=== PATIENT | female | born 1995 | race Caucasian/White ===

== ENCOUNTER 2019-06-27 10:54 | Emergency (ER) | payer OTHER ==
[~2019-06-27] VITALS: Ht 165.1 cm; Wt 83.9 kg
[2019-06-27 11:04] VITALS: BP 106/63
--- NOTE | 2019-06-27 11:31 | RAD ---
TOES LEFT History: Pain in the great toe after passing out at work Comparison: None. Findings: 2 views of the left foot with attention to the first digit are submitted. There is a small intra-articular fracture at the medial, proximal aspect of the first proximal phalanx. Impression: 1. There is a small intra-articular fracture of the medial, proximal aspect of the first proximal phalanx. Electronically signed by: Facundo Mandel MD (06/27/2019 11:28 AM) [id number]
--- NOTE | 2019-06-27 11:34 | PHYS DOC ---
Past History Past Medical History: No Pertinent History Past Surgical History: Tonsillectomy, Other Smoking: Cigarettes, Less than 1pk/day Alcohol Use: None Drug Use: None Adult General Chief Complaint Chief Complaint: TOE PROBLEM HPI HPI Ms. Maxwell is a 24yo F w/ PMH significant for anxiety presents with left 1st digit foot pain that was first noticed at 9:30pm last night after she had fainted at work, [employer], which she believes occurred due to heat and dehydration. Never fainted before and other than feeling hot prior to the episode, she didn't experience lightheadedness, dizziness, shortness of breath, chest pain, or palpitations. There is no pain in her other toes, ankles or knees b/l. Rates her pain 3/10 at rest and 7/10 when standing or moving, pain is constant and sharp. Review of Systems Review of Systems Constitutional: Denies fever or chills Eyes: Denies redness or eye pain HENT: Denies nasal congestion or sore throat Respiratory: Denies cough or shortness of breath Cardiovascular: Denies chest pain or palpitations GI: Denies abdominal pain, nausea, vomiting, diarrhea, constipation, hematochezia : Denies dysuria or hematuria Musculoskeletal: Reports left great toe tenderness. Denies back or other joint pain. Integument: Denies rash or skin lesions Neurologic: Denies headache, focal weakness or sensory changes Complete systems were reviewed and found to be within normal limits, except as documented in this note. Physical Exam Physical Exam Constitutional: Well developed, well nourished, no acute distress, non-toxic appearance HENT: Normocephalic, atraumatic, oropharynx moist Eyes: PERRL, EOMI, conjunctiva normal, no discharge Neck: Normal range of motion, no tenderness, supple Cardiovascular: Heart rate normal, regular rhythm Lungs & Thorax: Bilateral breath sounds clear to auscultation, no wheezing Abdomen: Soft, no tenderness, non-distended Skin: Warm, dry, no erythema, no rash Back: No tenderness, no CVA tenderness Extremities: left metatarsal phalangeal joint tenderness, limited ROM, and mild non-pitting edema Neurologic: Alert and oriented X 3, normal motor function, normal sensory function, no focal deficits noted Psychologic: Affect normal, judgement normal, mood normal Current Patient Data Vital Signs Vital Signs Date Time Temp Pulse Resp B/P (MAP) Pulse Ox O2 Delivery O2 Flow Rate FiO2 06/27/19 11:04 98.0 82 18 100 Room Air EKG EKG [] Radiology/Procedures Radiology/Procedures Left toe x-ray: There is a small intra-articular fracture of the medial, proximal aspect of the first proximal phalanx.[] Course & Med Decision Making Course & Med Decision Making Pertinent Labs and Imaging studies reviewed. (See chart for details) Patient presented w/ left great toe pain. X-ray showed small intra-articular fracture. Pain managed with ibuprofen w/ post-op shoe for support. Work release provided for 1 week for light duty only or workman's comp evaluation. Patient stable for discharge with outpatient follow-up with PCP. Discussed findings and plan with patient and family, who acknowledge understanding and agreement. [] Dragon Disclaimer Dragon Disclaimer This electronic medical record was generated, in whole or in part, using a voice recognition dictation system. Splinting Splinting : Location: Left foot Pre-Made Type: post-op shoe Pre-Proc Neuro Vasc Exam: normal Post-Proc Neuro Vasc Exam: normal, unchanged from pre-exam Departure Departure: Impression: Primary Impression: Fracture of proximal phalanx of left great toe Disposition: 01 HOME, SELF-CARE Condition: STABLE Referrals: PCP,UNKNOWN (PCP) Patient Instructions: Cast Shoe, Toe Fracture, [id number] Additional Instructions: Use over the counter Tylenol or Ibuprofen for pain or discomfort. Follow with Worker's Compensation and/or Offline Cutter- [facility], at [address] [place] [address] Problem Qualifiers Primary Impression: Fracture of proximal phalanx of left great toe Encounter type: initial encounter Fracture type: closed Fracture alignment: nondisplaced Qualified Codes: S92.415A - Nondisplaced fracture of proximal phalanx of left great toe, initial encounter for closed fracture CRISTIAN NORRIS DO Jun 27, 2019 11:34
[2019-06-27] MEDS ORDERED: IBUPROFEN 600 MG TABLET. PO ONE ×2 (11:45→11:50)
== END 2019-06-27 12:07 | disposition home or self-care (01) ==
LOC: ER 10:54
DX: S92.415A Nondisplaced fracture of proximal phalanx of left great toe, initial encounter for closed fracture (principal); F17.210 Nicotine dependence, cigarettes, uncomplicated; W18.39XA Other fall on same level, initial encounter; Y93.89 Activity, other specified; Y92.89 Other specified places as the place of occurrence of the external cause; Y99.8 Other external cause status
CPT/HCPCS: 73660; 99284

== ENCOUNTER 2019-12-17 13:37 | Emergency (ER) | payer OTHER ==
[~2019-12-17] VITALS: Ht 165.1 cm; Wt 79.4 kg
[2019-12-17 13:45] VITALS: BP 122/58
[2019-12-17 14:43] LABS: BASO % 0 % (0-3); EOS # 0.1 x10^3/uL (0.0-0.7); EOS % 2 % (0-3); HEMATOCRIT 39.6 % (36.0-47.0); HEMOGLOBIN 12.9 g/dL (12.0-15.5); LYMPH # 1.4 x10^3/uL (1.0-4.8); LYMPH % 22 % (24-48); MEAN CORPUSCULAR HEMOGLOBIN 28 pg (25-35); MEAN CORPUSCULAR HGB CONC 33 g/dL (31-37); MEAN CORPUSCULAR VOLUME 87 fL (79-100); MONO # 0.4 x10^3/uL (0.0-1.1); MONO % 5 % (0-9); NEUT # 4.7 x10^3uL (1.8-7.7); NEUT % 71 % (31-73); PLATELET COUNT 331 x10^3/uL (140-400); RED BLOOD COUNT 4.57 x10^6/uL (3.50-5.40); RED CELL DISTRIBUTION WIDTH 13.6 % (11.5-14.5); WHITE BLOOD COUNT 6.7 x10^3/uL (4.0-11.0)
[2019-12-17 14:48] LABS: U PREG PATIENT NEGATIVE (NEG)
[2019-12-17 14:51] LABS: CALCIUM 8.6 mg/dL (8.5-10.1); CREATININE 0.8 mg/dL (0.6-1.0); GFR 86.7; MAGNESIUM 1.7 mg/dL (1.8-2.4); POTASSIUM 3.8 mmol/L (3.5-5.1)
[2019-12-17 14:52] LABS: AMPHETAMINE/METHAMPHETAMINE NEG (NEG); BARBITURATES NEG (NEG); BENZODIAZEPINES NEG (NEG); CANNABINOIDS NEG (NEG); COCAINE NEG (NEG); METHADONE NEG (NEG); OPIATES NEG (NEG); PHENCYCLIDINE NEG (NEG)
[2019-12-17 14:55] LABS: ACETAMIN < 2.0 mcg/mL (10-30); ETHANOL < 10 mg/dL (0-10); SALIC 1.9 mg/dL (2.8-20.0)
--- NOTE | 2019-12-17 15:17 | NUR ---
TELEPSYCH CONTACTED AND WOULD CONNECT WHEN READY. @[id number]
--- NOTE | 2019-12-17 16:07 | EKG ---
[address] [address] Test Date: 2019-12-17 Test Time: 14:17:21 Pat Name: RICHELLE TORRES Department: Room: Gender: F Button Maker: : 1995 Requested By: ROQUE KENNEDY Order Number: [id number] Reading MD: Measurements Intervals [place] Rate: 90 P: 52 OK: 130 QRS: 31 QRSD: 80 T: 28 QT: 344 QTc: 425 Interpretive Statements SINUS RHYTHM QRS(T) CONTOUR ABNORMALITY CONSIDER ANTEROLATERAL MYOCARDIAL DAMAGE POSSIBLY ABNORMAL ECG RI6.01 No previous ECG available for comparison
--- NOTE | 2019-12-17 16:19 | PHYS DOC ---
Past History Past Medical History: Anxiety, Depression Past Surgical History: Tonsillectomy, Other Additional Past Surgical Histo: wrist, nasal Smoking: Cigarettes, Less than 1pk/day Alcohol Use: Rarely Drug Use: None Adult General Chief Complaint Chief Complaint: SUICIDAL IDEATION [facility] Patient is a 24 year old F who presents with suicidal ideations. 4 days ago she did take extra Cymbalta ibuprofen and aspirin with the intent to kill herself. Last night she stood at the bridge over the [facility] and was going to jump in. She does have previous suicidal attempts by ingestion. She states that she is overwhelmed with social stressors. Currently she is asymptomatic other than suicidal ideations. She has no other associated symptoms. Review of Systems Review of Systems Constitutional: Denies fever or chills [] Eyes: Denies change in visual acuity, redness, or eye pain [] HENT: Denies nasal congestion or sore throat [] Respiratory: Denies cough or shortness of breath [] Cardiovascular: No additional information not addressed in HPI [] GI: Denies abdominal pain, nausea, vomiting, bloody stools or diarrhea [] : Denies dysuria or hematuria [] Musculoskeletal: Denies back pain or joint pain [] Integument: Denies rash or skin lesions [] Neurologic: Denies headache, focal weakness or sensory changes [] Endocrine: Denies polyuria or polydipsia [] All other systems were reviewed and found to be within normal limits, except as documented in this note. Family History Family History No pertinent family medical history was reported Current Medications Current Medications Current medications were reviewed Allergies Allergies Allergies Coded Allergies Type Severity Reaction Last Updated Verified Sulfa (Sulfonamide Antibiotics) Allergy Unknown 12/17/19 Yes codeine Allergy Unknown 12/17/19 Yes Physical Exam Physical Exam Constitutional: Well developed, well nourished, no acute distress, non-toxic appearance. [] HENT: Normocephalic, atraumatic, Eyes: PERRLA, EOMI, conjunctiva normal, no discharge. [] Neck: Normal range of motion, no tenderness, supple, no stridor. [] Cardiovascular:Heart rate regular rhythm, Lungs & Thorax: Bilateral breath sounds clear to auscultation [] Abdomen: Bowel sounds normal, soft, no tenderness, no masses, no pulsatile masses. [] Skin: Warm, dry, no erythema, no rash. [] Extremities: No tenderness, no cyanosis, no clubbing, ROM intact, no edema. [] Neurologic: Alert and oriented X 3, normal motor function, normal sensory function, no focal deficits noted. [] Psychologic: Affect normal, judgement normal, mood normal. [] Current Patient Data Vital Signs Vital Signs Date Time Temp Pulse Resp B/P (MAP) Pulse Ox O2 Delivery O2 Flow Rate FiO2 12/17/19 13:45 98.2 94 20 100 Room Air Lab Results Laboratory Tests Test 12/17/19 14:24 12/17/19 14:29 White Blood Count 6.7 x10^3/uL (4.0-11.0) Red Blood Count 4.57 x10^6/uL (3.50-5.40) Hemoglobin 12.9 g/dL (12.0-15.5) Hematocrit 39.6 % (36.0-47.0) Mean Corpuscular Volume 87 fL (79-100) Mean Corpuscular Hemoglobin 28 pg (25-35) Mean Corpuscular Hemoglobin Concent 33 g/dL (31-37) Red Cell Distribution Width 13.6 % (11.5-14.5) Platelet Count 331 x10^3/uL (140-400) Neutrophils (%) (Auto) 71 % (31-73) Lymphocytes (%) (Auto) 22 % (24-48) L Monocytes (%) (Auto) 5 % (0-9) Eosinophils (%) (Auto) 2 % (0-3) Basophils (%) (Auto) 0 % (0-3) Neutrophils # (Auto) 4.7 x10^3uL (1.8-7.7) Lymphocytes # (Auto) 1.4 x10^3/uL (1.0-4.8) Monocytes # (Auto) 0.4 x10^3/uL (0.0-1.1) Eosinophils # (Auto) 0.1 x10^3/uL (0.0-0.7) Basophils # (Auto) 0.0 x10^3/uL (0.0-0.2) Sodium Level 141 mmol/L (136-145) Potassium Level 3.8 mmol/L (3.5-5.1) Chloride Level 107 mmol/L (98-107) Carbon Dioxide Level 30 mmol/L (21-32) Anion Gap 4 (6-14) L Blood Urea Nitrogen 10 mg/dL (7-20) Creatinine 0.8 mg/dL (0.6-1.0) Estimated GFR (Cockcroft-Gault) 86.7 Glucose Level 100 mg/dL (70-99) H Calcium Level 8.6 mg/dL (8.5-10.1) Magnesium Level 1.7 mg/dL (1.8-2.4) L Salicylates Level 1.9 mg/dL (2.8-20.0) L Salicylate Last Dose Date Unknown Salicylate Last Dose Time Unknown Acetaminophen Level < 2.0 mcg/mL (10-30) L Acetaminophen Last Dose Date Unknown Acetaminophen Last Dose Time Unknown Ethyl Alcohol Level < 10 mg/dL (0-10) Urine Test Negative (NEG) Urine Opiates Screen Neg (NEG) Urine Methadone Screen Neg (NEG) Urine Barbiturates Neg (NEG) Urine Phencyclidine Screen Neg (NEG) Urine Amphetamine/Methamphetamine Neg (NEG) Urine Benzodiazepines Screen Neg (NEG) Urine Cocaine Screen Neg (NEG) Urine Cannabinoids Screen Neg (NEG) Urine Ethyl Alcohol Neg (NEG) EKG EKG Normal sinus rhythm Radiology/Procedures Radiology/Procedures [] Course & Med Decision Making Course & Med Decision Making Pertinent Labs and Imaging studies reviewed. (See chart for details) Tele-psych was called for further evaluation Dragon Disclaimer Dragon Disclaimer This electronic medical record was generated, in whole or in part, using a voice recognition dictation system. Departure Departure: Impression: Primary Impression: Suicidal ideations Disposition: 65 XFER TO PSYCH HOSP/UNIT Condition: STABLE Referrals: DAYAN WHITE DO (PCP) ROQUE KENNEDY MD Dec 17, 2019 16:19
[2019-12-17] MEDS ORDERED: MAGNESIUM SULFATE 2GM 50 ML IV ONE (18:45)
[2019-12-17] MEDS ORDERED: MAGNESIUM HYDROXIDE 2,400 MG/30 ML ORAL.SUSP. PO ONE (19:45)
== END 2019-12-17 19:55 ==
LOC: ER 13:37
DX: R45.851 Suicidal ideations (principal); F41.9 Anxiety disorder, unspecified; F32.9 Major depressive disorder, single episode, unspecified; Z90.89 Acquired absence of other organs; F17.210 Nicotine dependence, cigarettes, uncomplicated; Z98.890 Other specified postprocedural states; Z88.2 Allergy status to sulfonamides; Z88.5 Allergy status to narcotic agent
CPT/HCPCS: 36415; 80048; 80307; 80329; 81025; 83735; 85025; 93005; 99285; G0480; 82003

== ENCOUNTER 2020-10-01 20:01 | Emergency (ER) | payer OTHER ==
[~2020-10-01] VITALS: Ht 165.1 cm; Wt 84.9 kg
[2020-10-01 20:12] VITALS: BP 135/79
[2020-10-01] MEDS ORDERED: DEXAMETHASONE 4 MG TABLET PO ONE (21:00)
[2020-10-01] MEDS ORDERED: IBUPROFEN 600 MG TABLET. PO ONE (21:00)
[2020-10-01] MEDS ORDERED: ORPH-16 PO (21:00)
--- NOTE | 2020-10-01 21:00 | PHYS DOC ---
Past History Past Medical History: Anxiety, Bipolar, Depression Past Surgical History: Tonsillectomy, Other Additional Past Surgical Histo: wrist, nasal, adenoids Smoking: Cigarettes, Less than 1pk/day Alcohol Use: Rarely Drug Use: None General Adult EDM: Chief Complaint: FACE PAIN HPI: HPI: Patient is a 25 yo F who presents with left sided jaw pain since she woke up this morning. She has never had jaw pain like this before. She denies any trauma to the face. She does have a history of bruxism for which she used to use a bite gaurd while sleeping, but has not had to used it for some time now. She reports pain around the left TMJ upon clenching her teeth. She has not been able to eat solid food today due to the pain. Denies dysphagia, fever, sore throat, tooth pain. She has taken ibuprofen today without much relief. Review of Systems: Review of Systems: Constitutional: Denies fever or chills Eyes: Denies redness or eye pain HENT: Reports left jaw pain on teeth clenching. Denies nasal congestion or sore throat Respiratory: Denies cough or shortness of breath Cardiovascular: Denies chest pain or palpitations GI: Denies abdominal pain, nausea, or vomiting : Denies dysuria or hematuria Musculoskeletal: Denies back pain or joint pain Integument: Denies rash or skin lesions Neurologic: Denies headache, focal weakness or sensory changes Complete systems were reviewed and found to be within normal limits, except as documented in this note. Current Medications: Current Meds: Current Medications Medications (Trade) Dose Ordered Sig/[facility] Start Time Stop Time Status Last Admin Dose Admin Dexamethasone (Decadron) 10 mg 1X ONCE 10/01/20 21:00 10/01/20 21:01 UNV Ibuprofen (Motrin) 600 mg 1X ONCE 10/01/20 21:00 10/01/20 21:01 UNV Allergies: Allergies: Allergies Coded Allergies Type Severity Reaction Last Updated Verified Sulfa (Sulfonamide Antibiotics) Allergy Unknown 10/01/20 Yes codeine Allergy Unknown 10/01/20 Yes Physical Exam: PE: Constitutional: Well developed, well nourished, no acute distress, non-toxic appearance HENT: Jaw depression restricted due to pain, palpable click around left TMJ during jaw elevation, no swelling or bruising noted, no dental disease noted Eyes: PERRL, EOMI, conjunctiva normal, no discharge Neck: Normal range of motion, no tenderness, supple Lungs & Thorax: No respiratory distress, equal chest rise and fall Abdomen: Soft, no tenderness Skin: Warm, dry, no erythema, no rash Back: No tenderness, no CVA tenderness Extremities: No tenderness, ROM intact, no edema Neurologic: Alert and oriented X 3, normal motor function, normal sensory function, no focal deficits noted Psychologic: Affect normal, judgment normal Current Patient Data: Vital Signs: Vital Signs Date Time Temp Pulse Resp B/P (MAP) Pulse Ox O2 Delivery O2 Flow Rate FiO2 10/01/20 20:12 97.5 90 16 135/79 (97) 99 Room Air EKG: EKG: [] Radiology/Procedures: Radiology/Procedures: [] Course & Med Decision Making: Course & Med Decision Making Pt presents with left sided jaw pain that started this morning when she woke up. With the lack of recent trauma, her history of bruxism, and palpable click around the left TMJ during jaw ROM, temporomandibular disorder is favored as the most likely diagnosis. One time oral steroid and ibuprofen was given in the ED. Pt advised to resume wearing bit gaurd at night, and take ibuprofen/tylenol as well as muscle relaxer. Patient stable for discharge with outpatient follow-up with PCP/dentist. Discussed findings and plan with patient, who acknowledges understanding and agreement. Manolo Disclaimer: Manolo Disclaimer: This electronic medical record was generated, in whole or in part, using a voice recognition dictation system. Departure Departure: Impression: Primary Impression: TMJ (sprain of temporomandibular joint) Qualified Codes: S03.40XA - Sprain of jaw, unspecified side, initial encounter Disposition: 01 DC HOME SELF CARE/HOMELESS Condition: STABLE Referrals: PCP,NO (PCP) Patient Instructions: Diet - Soft, Temporomandibular Joint Pain-Brief Additional Instructions: ICE or heat area 20 min on then leave off next 20 min. Repeat several times daily for next few days. Use over the counter Tylenol and/or Ibuprofen for pain or discomfort. Soft and/or liquid diet. Scripts Orphenadrine Citrate (ORPHENADRINE CITRATE) 100 Mg Tablet.er 1 TAB PO BID PRN for MUSCLE PAIN, #14 TAB 0 Refills Prov: CRISTIAN NORRIS DO 10/01/20 CRISTIAN NORRIS DO Oct 01, 2020 21:00
== END 2020-10-01 21:12 | disposition home or self-care (01) ==
LOC: ER 20:01
DX: S03.42XA Sprain of jaw, left side, initial encounter (principal); F17.210 Nicotine dependence, cigarettes, uncomplicated; Z88.2 Allergy status to sulfonamides; Z88.5 Allergy status to narcotic agent; X58.XXXA Exposure to other specified factors, initial encounter; Y93.89 Activity, other specified; Y92.89 Other specified places as the place of occurrence of the external cause; Y99.8 Other external cause status
CPT/HCPCS: 99283; J8540

== ENCOUNTER 2021-02-05 18:31 | Emergency (ER) | payer OTHER ==
[~2021-02-05] VITALS: Ht 165.1 cm; Wt 91.2 kg
[2021-02-05 18:31] VITALS: BP 146/115
[~2021-02-05 18:31] MED LIST: ORPH-16 PO
--- NOTE | 2021-02-05 18:39 | PHYS DOC ---
Past History Past Medical History: Anxiety, Bipolar, Depression (CRISTIAN FREDERICK APRN) Past Surgical History: Tonsillectomy, Other Additional Past Surgical Histo: wrist, nasal, adenoids (CRISTIAN FREDERICK APRN) Smoking: Cigarettes, Less than 1pk/day Alcohol Use: Rarely Drug Use: None (CRISTIAN FREDERICK APRN) Adult General HPI HPI Patient is a 25-year-old female presents to the emergency department stating she received a [employer] COVID-19 virus vaccine injection to the left shoulder this morning at approximately 10 AM. 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 Patient states she does have a history of anxiety depression and takes Zoloft however reports she has not felt like this in the past. Patient is worried she is having an allergic reaction to the vaccination. Patient currently denies shortness of breath, chest pain, chest congestion, nasal congestion, nausea, vomiting, or diarrhea. Patient denies any other physical complaints or physical concerns. Patient states she is not homicidal or suicidal. Patient reports being on her menstrual cycle that started yesterday. (CRISTIAN FREDERICK APRN) Review of Systems Review of Systems 14 body systems of review of systems have been reviewed. See HPI for pertinent positives and negative responses, otherwise all other systems are negative, nonpertinent or noncontributory. (CRISTIAN FREDERICK APRN) Allergies Allergies Allergies Coded Allergies Type Severity Reaction Last Updated Verified Sulfa (Sulfonamide Antibiotics) Allergy Unknown 10/01/20 Yes codeine Allergy Unknown 10/01/20 Yes (CRISTIAN FREDERICK APRN) Physical Exam Physical Exam Constitutional: Well developed, well nourished, no acute distress, non-toxic appearance. Patient anxious in appearance. HENT: Normocephalic, atraumatic, bilateral external ears normal, oropharynx moist, no oral exudates, nose normal. Oropharynx moist, not erythematous, no uvular edema, no peritonsillar infectious process appreciated. The patient is not drooling, no oral airway compromise appreciated, no lymphadenopathy of the head or neck appreciated, bilateral TMs within normal limits. Eyes: PERRLA, EOMI, conjunctiva normal, no discharge. Neck: Normal range of motion, no tenderness, supple, no stridor. No nuchal rigidity, no midline spinal cervical tenderness, no meningeal signs. Cardiovascular:Heart rate regular rhythm, tachycardic, heart sounds S1-S2. Lungs & Thorax: Bilateral breath sounds clear to auscultation all lung devlin, no adventitious lung sounds appreciated. Abdomen: Bowel sounds normal, soft, no tenderness, no masses, no pulsatile masses. Skin: Warm, dry, no erythema, no rash. Except for patient's trunk, skin erythematous without raised rash, no open lesions. Back: No tenderness to palpation along spinous processes and adjacent structures of the back. Extremities: No tenderness, no cyanosis, no clubbing, ROM intact, no edema. No extremity swelling, +2/4 pulses, distal cap refill less than 2 seconds Neurologic: Alert and oriented X 3, normal motor function, normal sensory function, no focal deficits noted. Psychologic: Affect normal, judgement normal, mood normal. (CRISTIAN FREDERICK APRN) EKG EKG [] (CRISTIAN FREDERICK APRN) Radiology/Procedures Radiology/Procedures [] (CRISTIAN FREDERICK APRN) Heart Score C/O Chest Pain: No Risk Factors: Risk Factors: DM, Current or recent (<one month) smoker, HTN, HLP, family history of CAD, obesity. Risk Scores: Risk Factors: DM, Current or recent (<one month) smoker, HTN, HLP, family history of CAD, obesity. (CRISTIAN FREDERICK APRN) Course & Med Decision Making Course & Med Decision Making Pertinent Labs and Imaging studies reviewed. (See chart for details) 25-year-old female, vital signs reviewed, presents to the emergency department worried she might be having a reaction to the COVID-19 virus vaccination. Patient's physical examination was consistent with adverse drug reaction, ED plan will obtain urine for urinalysis assay and urine test prior to starting IV normal saline, IV Benadryl, IV Pepcid, IV Decadron, 1/2 mg of IV Ativan. Will reevaluate for ongoing adverse reaction. After a short period of time, reevaluation of the patient found the patient in no acute distress, nontoxic in appearance, patient states that she feels "100% better now "patient feels as if she can go home now. Patient has significant other at bedside who will drive her home. Patient will be given a work excuse for tomorrow and may return back to work on 02/07/2021. Discussed with patient discharge home instructions to include possibly needing to take Benadryl again in 8 hours, follow-up with PCP for ongoing reaction problems, return to ER prec autions and concerns, patient gave verbal understanding of instructions, patient was discharged home without incident, ambulatory with steady gait to ED exit. (CRISTIAN FREDERICK APRN) Dragon Disclaimer Dragon Disclaimer This electronic medical record was generated, in whole or in part, using a voice recognition dictation system. (CRISTIAN FREDERICK APRN) Departure Departure: Impression: Primary Impression: Adverse drug event Disposition: 01 DC HOME SELF CARE/HOMELESS Condition: GOOD Referrals: PCP,NO (PCP) Additional Instructions: I believe your symptoms for related to an adverse reaction to the COVID-19 virus injection you received today. The medications I have given you will help reduce the reaction type feelings you are having. You may need to take an additional Benadryl tomorrow, however if your symptoms do not return there is no indication for further medications. Please return to the emergency department for worsening symptoms or other concerns. Attending Signature Attending Signature I have participated in the care of this patient and I have reviewed and agree with all pertinent clinical information above including history, exam, and recommendations. (JERAMIE LEBRON MD) CRISTIAN FREDERICK APRN Feb 05, 2021 18:38 JERAMIE LEBRON MD Feb 07, 2021 17:53
[2021-02-05 18:59] LABS: BILIRUBIN,URINE NEG (NEG); CLARITY,URINE CLEAR; COLOR,URINE YELLOW; GLUCOSE,URINE NEG (NEG)
[2021-02-05 19:00] LABS: NITRITE,URINE NEG (NEG); UROBILINOGEN,URINE 0.2 mg/dL (0.2 mg/dL)
[2021-02-05] MEDS ORDERED: diphenhydrAMINE 50 MG/ML VIAL IVP ONE (19:00)
[2021-02-05] MEDS ORDERED: DEXAMETHASONE SOD PHOS 10 MG/ML VIAL. IVP ONE (19:00)
[2021-02-05] MEDS ORDERED: IV NORMAL SALINE 1,000ML 1,000 ML IV ONE (19:00)
[2021-02-05] MEDS ORDERED: FAMOTIDINE 20 MG/2 ML VIAL IVP ONE (19:00)
[2021-02-05 19:05] LABS: BACTERIA,URINE FEW /HPF (0-FEW); SQUAMOUS EPITHELIAL CELL,UR FEW /LPF; U PREG PATIENT NEGATIVE (NEG); WBC,URINE OCC /HPF (0-4)
== END 2021-02-05 19:50 | disposition home or self-care (01) ==
LOC: ER 18:31
DX: L50.9 Urticaria, unspecified (principal); T50.Z95A Adverse effect of other vaccines and biological substances, initial encounter; F41.9 Anxiety disorder, unspecified; F31.9 Bipolar disorder, unspecified; F17.210 Nicotine dependence, cigarettes, uncomplicated; Z88.2 Allergy status to sulfonamides; Z88.5 Allergy status to narcotic agent; Y92.89 Other specified places as the place of occurrence of the external cause
CPT/HCPCS: 81001; 81025; 96361; 96374; 96375; 99284; J1100; J1200; J2060; J3490; J7030

== ENCOUNTER 2021-05-06 13:03 | Emergency (ER) | payer OTHER ==
[~2021-05-06] VITALS: Ht 165.1 cm; Wt 90.0 kg
[2021-05-06 13:40] VITALS: BP 122/77
--- NOTE | 2021-05-06 13:47 | PHYS DOC ---
Past History Past Medical History: Anxiety, Bipolar, Depression Past Surgical History: Tonsillectomy, Other Additional Past Surgical Histo: wrist, nasal, adenoids Smoking: Cigarettes, Less than 1pk/day Alcohol Use: Rarely Drug Use: None Adult General HPI HPI Patient is a 25-year-old female presenting for with coworker for drug exposure. 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 Patient reports feeling lightheaded at first and d daphnie but at present, "feels like a cloud"and also feels tired. Denies any pain, chest pain, shortness of breath, abdominal pain, dysuria Review of Systems Review of Systems Fourteen body systems of review of systems have been reviewed. See HPI for pertinent positives and negative responses, other louis all other systems are negative, non-pertinent or non-contributory Allergies Allergies Allergies Coded Allergies Type Severity Reaction Last Updated Verified Sulfa (Sulfonamide Antibiotics) Allergy Unknown 10/01/20 Yes codeine Allergy Unknown 10/01/20 Yes Physical Exam Physical Exam Constitutional: Well developed, well nourished, no acute distress, non-toxic appearance. Appears calm and under the influence of unknown medication HENT: Normocephalic, atraumatic, bilateral external ears normal, oropharynx moist, no oral exudates, nose normal. Eyes: PERRLA, EOMI, conjunctiva normal, no discharge. Neck: Normal range of motion, no tenderness, supple, no stridor. Cardiovascular: Heart rate regular, sinus rhythm, no murmurs rubs or gallops Lungs & Thorax: Bilateral breath sounds clear to auscultation Abdomen: Bowel sounds normal, soft, no tenderness, no masses, no pulsatile masses. Nonsurgical abdomen, no peritoneal signs Skin: Warm, dry, no erythema, no rash. Back: No tenderness, no CVA tenderness. Extremities: No tenderness, no cyanosis, no clubbing, ROM intact, no edema. Neurologic: Alert and oriented X 3, grossly normal motor & sensory function, no focal deficits noted. Psychologic: Affect normal, judgement normal, mood normal. Current Patient Data Vital Signs Vital Signs Date Time Temp Pulse Resp B/P (MAP) Pulse Ox O2 Delivery O2 Flow Rate FiO2 05/06/21 13:40 98.6 86 16 122/77 (92) 100 Room Air Vital Signs Date Time Temp Pulse Resp B/P (MAP) Pulse Ox O2 Delivery O2 Flow Rate FiO2 05/06/21 13:40 98.6 86 16 122/77 (92) 100 Room Air Lab Results Laboratory Tests Test 05/06/21 13:40 Urine Opiates Screen Neg Urine Methadone Screen Neg Urine Barbiturates Neg Urine Phencyclidine Screen Neg Urine Amphetamine/Methamphetamine Neg Urine Benzodiazepines Screen Neg Urine Cocaine Screen Neg Urine Cannabinoids Screen Neg Urine Ethyl Alcohol Neg EKG EKG [] Radiology/Procedures Radiology/Procedures [] Heart Score C/O Chest Pain: No Risk Factors: Risk Factors: DM, Current or recent (<one month) smoker, HTN, HLP, family history of CAD, obesity. Risk Scores: Risk Factors: DM, Current or recent (<one month) smoker, HTN, HLP, family history of CAD, obesity. Course & Med Decision Making Course & Med Decision Making Discussed with the patient all findings and diagnostic testing. I discussed most likely diagnosis of occupational drug exposure, likely fentanyl or K2 based on clinical presentation that was not detected on routine urine drug test screen. Patient presentation improved throughout ER intervention. I disclosed with patient and coworker at bedside little indication for further diagnostic work-up in ER setting as condition is likely self-limiting in nature. As such, I stressed need for close outpatient follow-up to review today's ER visit. Strict return precautions were also discussed at length with good understanding by patient. Patient voiced understanding and agreement with the plan. Patient knows to come back for repeat evaluation if concerning signs or symptoms present prior to outpatient follow-up. Hemodynamically stable, ambulatory and well- appearing at time of disposition. Dragon Disclaimer Dragon Disclaimer This electronic medical record was generated, in whole or in part, using a voice recognition dictation system. Departure Departure: Impression: Primary Impression: Adverse exposure in workplace Disposition: HOME / SELF CARE / HOMELESS Condition: IMPROVED Referrals: PCP,HYUN (PCP) Additional Instructions: As discussed prior to ER departure, you most likely were exposed to an unknown illicit substance while at work that is uncommon but occurs at your workplace. As disclose, your urine drug screen was negative. It is suspected based on your symptoms and occupational exposure that you might have been exposed to K2 and/or fentanyl. Your symptoms and overall appearance improved while in ER. Continued supportive care advised. I disclose there is little utility in further diagnostic work-up and/or intervention while in ER setting and so, close outpatient follow-up with primary care provider is advised. If any concerning signs or symptoms present prior to outpatient follow-up please do not hesitate to come back for repeat evaluation. It was a pleasure to take care of you and I wish you the best going forward MALACHI ORTEGA DO May 06, 2021 13:47
[2021-05-06 14:24] LABS: BARBITURATES NEG (NEG); BENZODIAZEPINES NEG (NEG); CANNABINOIDS NEG (NEG); COCAINE NEG (NEG); METHADONE NEG (NEG); OPIATES NEG (NEG); PHENCYCLIDINE NEG (NEG)
[2021-05-06 14:28] LABS: AMPHETAMINE/METHAMPHETAMINE NEG (NEG)
== END 2021-05-06 15:10 | disposition home or self-care (01) ==
LOC: ER 13:03
DX: F17.210 Nicotine dependence, cigarettes, uncomplicated (principal); Z57.9 Occupational exposure to unspecified risk factor; Z88.2 Allergy status to sulfonamides; Z88.5 Allergy status to narcotic agent
CPT/HCPCS: 36415; 80307; 99283-25

== ENCOUNTER 2022-04-14 16:52 | Emergency (ER) | payer OTHER ==
[~2022-04-14] VITALS: Ht 165.1 cm; Wt 88.0 kg
[2022-04-14 17:10] VITALS: BP 128/78
--- NOTE | 2022-04-14 17:58 | PHYS DOC ---
Past History Past Medical History: Anxiety, Depression Past Surgical History: Tonsillectomy, Other Additional Past Surgical Histo: nasal surgery, finger surgery Smoking: Cigarettes, Less than 1pk/day Alcohol Use: None Drug Use: None General Adult EDM: Chief Complaint: TEST HPI: HPI: Patient is a 26-year-old female who presents to the emergency department after at home positive test requesting a test. Patient reports experiencing nausea, vomiting, fatigue and moodiness which prompted her to take the test. She reports a light menstrual cycle on April 03. She is G4, P3. She denies any abdominal pain or vaginal bleeding. Review of Systems: Review of Systems: Constitutional: See HPI GI: See HPI : See HPI Psychiatric: See HPI Allergies: Allergies: Allergies Coded Allergies Type Severity Reaction Last Updated Verified Sulfa (Sulfonamide Antibiotics) Allergy Unknown 10/01/20 Yes codeine Allergy Unknown 10/01/20 Yes Physical Exam: PE: Constitutional: Well developed, well nourished, no acute distress, non-toxic appearance. [] HENT: Normocephalic, atraumatic, bilateral external ears normal, oropharynx moist, no oral exudates, nose normal. [] Eyes: PERRL, EOMI, conjunctiva normal, no discharge. [] Neck: Normal range of motion, no stridor Cardiovascular: Normal peripheral perfusion Lungs & Thorax: Normal work of breathing, no tachypnea Abdomen: Soft and flat Skin: Warm, dry, no erythema, no rash. [] Back: No tenderness, no CVA tenderness. [] Extremities: No tenderness, no cyanosis, no clubbing, ROM intact, no edema. [] Neurologic: Alert and oriented X 3, normal motor function, normal sensory function, no focal deficits noted. [] Psychologic: Affect normal, judgement normal, mood normal. [] Current Patient Data: Labs: Laboratory Tests Test 04/14/22 16:32 POC Urine HCG, Qualitative hcg negative (Negative) Vital Signs: Vital Signs Date Time Temp Pulse Resp B/P (MAP) Pulse Ox O2 Delivery O2 Flow Rate FiO2 04/14/22 17:10 97.9 92 18 128/78 (95) 100 EKG: EKG: [] Radiology/Procedures: Radiology/Procedures: Laboratory Tests Test 04/14/22 16:32 04/14/22 17:14 Bedside Urine HCG, Qualitative hcg negative Urine Collection Type Unknown Urine Color Yellow Urine Clarity Clear Urine pH 6.5 Urine Specific [place] 1.015 Urine Protein Neg Urine Glucose (UA) Neg mg/dL Urine Ketones (Stick) Neg mg/dL Urine Blood Neg Urine Nitrite Neg Urine Bilirubin Neg Urine Urobilinogen Dipstick 0.2 mg/dL Urine Leukocyte Esterase Neg Urine RBC Occ /HPF Urine WBC 1-4 /HPF Urine Squamous Epithelial Cells Mod /LPF Urine Bacteria Few /HPF [] Heart Score: C/O Chest Pain: N/A Risk Factors: Risk Factors: DM, Current or recent (<one month) smoker, HTN, HLP, family history of CAD, obesity. Risk Scores: Score 0 - 3: 2.5% MACE over next 6 weeks - Discharge Home Score 4 - 6: 20.3% MACE over next 6 weeks - Admit for Clinical Observation Score 7 - 10: 72.7% MACE over next 6 weeks - Early Invasive Strategies Course & Med Decision Making: Course & Med Decision Making Pertinent Labs and Imaging studies reviewed. (See chart for details) [] Patient presents to the emergency department requesting a test after an at-home positive test. test in the ER was negative. Patient's urinalysis shows few bacteria, 1-4 white blood cells and moderate squamous cells there are no leukocytes or nitrites. Urinalysis is likely contaminated. She has no urinary complaints. Patient advised to increase fluids and rest. She is advised to follow-up with her primary care provider. I discussed with patient all findings and diagnostic testing as well as the need to follow-up with PCP for further evaluation and treatment or return to the ER if any new or worsening symptoms. Strict return precautions were also discussed at length. Patient voiced understanding and agreement with the plan. Patient is hemodynamically stable at the time of disposition. Dragon Disclaimer: Dragon Disclaimer: This electronic medical record was generated, in whole or in part, using a voice recognition dictation system. Departure Departure: Impression: Primary Impression: test negative Disposition: HOME / SELF CARE / HOMELESS Condition: GOOD Referrals: PCP,NO (PCP) Patient Instructions: Medical Screening Exam Additional Instructions: You were seen in the emergency department for a test. Your test was negative in the ER. Please follow-up with your primary care provider regarding your symptoms. Return to the emergency department if you have any new emergent concerns. JS SULLIVAN REPAIRER SCREEN CRUSHER April 14, 2022 17:58
[2022-04-14 18:06] LABS: BACTERIA,URINE FEW /HPF (0-FEW); CLARITY,URINE CLEAR; COLOR,URINE YELLOW; GLUCOSE,URINE NEG (NEG); NITRITE,URINE NEG (NEG); RBC,URINE OCC /HPF (0-2); SQUAMOUS EPITHELIAL CELL,UR MOD /LPF; UROBILINOGEN,URINE 0.2 mg/dL (0.2 mg/dL)
== END 2022-04-14 18:20 | disposition home or self-care (01) ==
LOC: ER 16:52
DX: R11.2 Nausea with vomiting, unspecified (principal); R53.1 Weakness; F17.210 Nicotine dependence, cigarettes, uncomplicated; Z32.02 Encounter for pregnancy test, result negative; Z90.89 Acquired absence of other organs
CPT/HCPCS: 81001; 81025; 99283

== ENCOUNTER → 2022-04-15 | Outpatient (CLI) | payer OTHER ==
[2022-04-14 17:10] VITALS: BP 128/78
== END ==
LOC: LAB 08:45
PROVIDERS: ATTEND Family Medicine
DX: Z32.00 Encounter for pregnancy test, result unknown (principal)
CPT/HCPCS: 36415; 84702